=== PATIENT | female | born 1935 | race Caucasian/White ===

== ENCOUNTER 2016-06-18 10:04 | Outpatient (CLI) | payer OTHER ==
--- NOTE | 2016-06-18 10:35 | DI ---
EXAM: Chest two view, frontal and lateral views. HISTORY: Respiratory disorder. COMPARISON: None available. FINDINGS: The heart size is at the upper limits of normal. There is tortuosity of a calcified thor acic aorta. There is no pulmonary vascular congestion. The lungs are clear save for a 0.7 cm right upper lobe nodule. No pleural effusion or pneumothorax is seen. No acute osseous abnormality iden tified. Degenerative changes seen in the spine with old appearing mild anterior wedging deformity o f a mid thoracic vertebral body. IMPRESSION: 1. No acute cardiopulmonary process. 2. Right upper lobe nodule is most likely a calcified granuloma. Consider follow-up radiographs in 3 months for reassessment.
== END 2016-06-18 10:05 | disposition home or self-care (01) ==
LOC: RAD 10:04
PROVIDERS: ATTEND Nurse Practitioner Family
DX: J98.8 Other specified respiratory disorders (principal); J02.9 Acute pharyngitis, unspecified; J40 Bronchitis, not specified as acute or chronic